=== PATIENT | female | born 1985 | race Caucasian/White ===

== ENCOUNTER 2017-03-13 17:05 | Emergency (ER) | payer MEDICAID ==
[~2017-03-13] VITALS: Ht 172.7 cm; Wt 87.5 kg
[2017-03-13 20:20] VITALS: BP 121/66
== END 2017-03-13 20:20 | disposition home or self-care (01) ==
LOC: ED 17:05
DX: J45.901 Unspecified asthma with (acute) exacerbation (principal); E66.9 Obesity, unspecified
CPT/HCPCS: J2930; J3475; J7030; J7613; J7644

== ENCOUNTER 2017-04-13 07:41 | Emergency (ER) | payer MEDICAID ==
[2017-04-13 08:37] LABS: BASOPHIL % 0.5 % (0-2); PLATELET COUNT 307 x10^3mcL (130-400); RED CELL DISTRIBUTION WIDTH 14.4 % (11.5-14.5)
[2017-04-13 08:49] LABS: CALCIUM 8.2 mg/dL (8.5-10.1); CARBON DIOXIDE 25.7 mmol/L (21-32); CHLORIDE SERUM 106 mmol/L (98-107); CREATININE SERUM 0.7 mg/dL (0.6-1.0); GFR1 > 60 mL/min; GLUCOSE SERUM 110 mg/dL (74-106); POTASSIUM SERUM 4.2 mmol/L (3.5-5.1); SODIUM SERUM 139 mmol/L (136-145)
[2017-04-13 08:55] LABS: ALKALINE PHOSPHATASE 104 U/L (46-116); ALT/SGPT 32 U/L (14-59); AST/SGOT 18 U/L (15-37); BILIRUBIN TOTAL 0.2 mg/dL (0.20-1.00); TOTAL PROTEIN, SERUM 7.4 g/dL (6.4-8.2)
[2017-04-13 08:57] LABS: ALBUMIN 3.3 g/dL (3.4-5.0)
[2017-04-13 10:01] VITALS: BP 133/79
== END 2017-04-13 10:14 | disposition home or self-care (01) ==
LOC: ED 07:41
PROVIDERS: Specialist
DX: J45.901 Unspecified asthma with (acute) exacerbation (principal); E66.9 Obesity, unspecified
CPT/HCPCS: J0171; J2930; J3475; J7030; J7613; J7644; Q0092

== ENCOUNTER 2017-05-07 09:54 | Emergency (ER) | payer MEDICAID ==
[2017-05-07 12:28] VITALS: BP 126/87
== END 2017-05-07 12:28 | disposition home or self-care (01) ==
LOC: ED 09:54
DX: J45.901 Unspecified asthma with (acute) exacerbation (principal); E66.9 Obesity, unspecified; H92.09 Otalgia, unspecified ear
CPT/HCPCS: J2930; J7613; J7644

== ENCOUNTER 2017-07-09 08:24 | Emergency (ER) | payer MEDICAID ==
[2017-07-09 09:52] LABS: CALCIUM 8.5 mg/dL (8.5-10.1); CARBON DIOXIDE 25.4 mmol/L (21-32); CHLORIDE SERUM 105 mmol/L (98-107); CREATININE SERUM 0.6 mg/dL (0.6-1.0); GFR1 > 60 mL/min; GLUCOSE SERUM 99 mg/dL (74-106); POTASSIUM SERUM 4.1 mmol/L (3.5-5.1); SODIUM SERUM 137 mmol/L (136-145)
[2017-07-09 10:12] VITALS: BP 131/84
== END 2017-07-09 10:12 | disposition home or self-care (01) ==
LOC: ED 08:24
PROVIDERS: Emergency Medicine
DX: J45.901 Unspecified asthma with (acute) exacerbation (principal); R03.0 Elevated blood-pressure reading, without diagnosis of hypertension
CPT/HCPCS: J7512; J7613; J7644; Q0092

== ENCOUNTER 2017-07-31 03:35 | Emergency (ER) | payer MEDICAID ==
[2017-07-31 05:34] VITALS: BP 125/86
== END 2017-07-31 05:34 | disposition home or self-care (01) ==
LOC: ED 03:35
DX: J45.901 Unspecified asthma with (acute) exacerbation (principal)
CPT/HCPCS: J2930; J7620; Q0092

== ENCOUNTER 2017-08-23 16:13 | Emergency (ER) | payer MEDICAID ==
[~2017-08-23] VITALS: Ht 165.1 cm; Wt 129.3 kg
[2017-08-23 17:17] VITALS: BP 139/90; Ht 165.1 cm; Wt 129.3 kg
== END 2017-08-23 19:38 | disposition left against medical advice (07) ==
LOC: ED 16:13
DX: Z53.21 Procedure and treatment not carried out due to patient leaving prior to being seen by health care provider (principal)

== ENCOUNTER 2017-08-24 06:06 | Emergency (ER) | payer MEDICAID ==
[2017-08-24 07:48] VITALS: BP 117/87
== END 2017-08-24 07:48 | disposition home or self-care (01) ==
LOC: ED 06:06
DX: J45.901 Unspecified asthma with (acute) exacerbation (principal)
CPT/HCPCS: J1100; J7613; J7644

== ENCOUNTER 2017-10-31 19:32 | Emergency (ER) | payer MEDICAID ==
[~2017-10-31] VITALS: Ht 167.6 cm; Wt 133.1 kg
[2017-10-31 20:29] VITALS: Ht 167.6 cm; Wt 133.1 kg
[2017-10-31 22:42] VITALS: BP 136/83
== END 2017-10-31 22:42 | disposition home or self-care (01) ==
LOC: ED 19:32
DX: J02.8 Acute pharyngitis due to other specified organisms (principal); R05 Cough; J45.909 Unspecified asthma, uncomplicated

== ENCOUNTER 2017-11-02 03:47 | Emergency (ER) | payer MEDICAID ==
[~2017-11-02] VITALS: Ht 162.6 cm; Wt 131.1 kg
[2017-11-02 04:12] VITALS: Ht 162.6 cm; Wt 131.1 kg
[2017-11-02 05:57] VITALS: BP 119/67
== END 2017-11-02 05:57 | disposition home or self-care (01) ==
LOC: ED 03:47
DX: J03.90 Acute tonsillitis, unspecified (principal); J45.909 Unspecified asthma, uncomplicated
CPT/HCPCS: J0696; J1100

== ENCOUNTER 2018-07-07 20:39 | Emergency (ER) | payer MEDICAID ==
[~2018-07-07] VITALS: Ht 170.2 cm; Wt 134.3 kg
[2018-07-07 20:50] VITALS: Ht 170.2 cm; Wt 134.3 kg
[2018-07-08 00:27] VITALS: BP 132/89
== END 2018-07-08 00:27 | disposition home or self-care (01) ==
LOC: ED 20:39
DX: J45.901 Unspecified asthma with (acute) exacerbation (principal)
CPT/HCPCS: J7512; J7620

== ENCOUNTER 2018-09-09 17:34 | Emergency (ER) | payer MEDICAID ==
[~2018-09-09] VITALS: Ht 165.1 cm; Wt 137.0 kg
[2018-09-09 17:40] VITALS: Ht 165.1 cm; Wt 137.0 kg
[2018-09-09 18:24] VITALS: BP 141/86
[2018-09-09 20:21] VITALS: BP 139/89
== END 2018-09-09 20:21 | disposition home or self-care (01) ==
LOC: ED 17:34
DX: J45.901 Unspecified asthma with (acute) exacerbation (principal)
CPT/HCPCS: J7512; J7613; J7644

== ENCOUNTER 2018-10-01 09:58 | Emergency (ER) | payer MEDICAID ==
[~2018-10-01] VITALS: Ht 170.2 cm; Wt 137.4 kg
[2018-10-01 10:07] VITALS: Ht 170.2 cm; Wt 137.4 kg
[2018-10-01 11:48] VITALS: BP 142/99
== END 2018-10-01 11:48 | disposition home or self-care (01) ==
LOC: ED 09:58
DX: J45.901 Unspecified asthma with (acute) exacerbation (principal)
CPT/HCPCS: J7512; J7613; J7644

== ENCOUNTER 2018-11-03 21:25 | Emergency (ER) | payer MEDICAID ==
[~2018-11-03] VITALS: Ht 167.6 cm; Wt 140.6 kg
[2018-11-03 22:52] VITALS: Ht 167.6 cm; Wt 140.6 kg
[2018-11-04 00:46] VITALS: BP 130/80
== END 2018-11-04 00:47 | disposition home or self-care (01) ==
LOC: ED 21:25
DX: J45.909 Unspecified asthma, uncomplicated (principal); Z90.49 Acquired absence of other specified parts of digestive tract
CPT/HCPCS: J7620; Q0092

== ENCOUNTER 2019-04-19 13:13 | Emergency (ER) | payer MEDICAID ==
[~2019-04-19] VITALS: Ht 165.1 cm; Wt 139.3 kg
[~2019-04-19 13:13] MED LIST: COLACE100 MG PO; NORCO1 TA2 PO; TYLENOL EXTRA500 M2 PO
[2019-04-19 13:26] VITALS: Ht 165.1 cm; Wt 139.3 kg
[2019-04-19 16:33] VITALS: BP 108/58
== END 2019-04-19 17:06 | disposition home or self-care (01) ==
LOC: ED 13:13
DX: S16.1XXA Strain of muscle, fascia and tendon at neck level, initial encounter (principal); S46.912A Strain of unspecified muscle, fascia and tendon at shoulder and upper arm level, left arm, initial encounter; S29.012A Strain of muscle and tendon of back wall of thorax, initial encounter; J45.909 Unspecified asthma, uncomplicated; Z90.49 Acquired absence of other specified parts of digestive tract; W07.XXXA Fall from chair, initial encounter; Y93.89 Activity, other specified; Y92.89 Other specified places as the place of occurrence of the external cause; Y99.8 Other external cause status
CPT/HCPCS: 72072

== ENCOUNTER 2019-09-12 15:44 | Emergency (ER) | payer MEDICAID ==
[~2019-09-12] VITALS: Ht 165.1 cm; Wt 95.3 kg
[2019-09-12 16:16] VITALS: Ht 165.1 cm; Wt 95.3 kg
[2019-09-12 18:14] VITALS: BP 140/82
== END 2019-09-12 18:14 | disposition home or self-care (01) ==
LOC: ED 15:44
DX: J45.909 Unspecified asthma, uncomplicated (principal); Z90.49 Acquired absence of other specified parts of digestive tract
CPT/HCPCS: 36415; J7620